=== PATIENT | female | born 1990 | race Caucasian/White ===

== ENCOUNTER 2016-10-21 11:04 | Emergency (ER) | payer OTHER | END 2016-10-21 12:06 | disposition home or self-care (01) | LOC: BURERS 11:04 | DX: S16.1XXA Strain of muscle, fascia and tendon at neck level, initial encounter (principal); B02.9 Zoster without complications; F17.210 Nicotine dependence, cigarettes, uncomplicated; F31.9 Bipolar disorder, unspecified; X58.XXXA Exposure to other specified factors, initial encounter | CPT/HCPCS: 99283 ==

== ENCOUNTER 2017-04-12 12:04 | Emergency (ER) | payer OTHER | END 2017-04-12 12:28 | disposition home or self-care (01) | LOC: BURERS 12:04 | DX: B86 Scabies (principal); B35.9 Dermatophytosis, unspecified; F31.9 Bipolar disorder, unspecified; F41.9 Anxiety disorder, unspecified; F17.210 Nicotine dependence, cigarettes, uncomplicated | CPT/HCPCS: 99282 ==

== ENCOUNTER 2017-05-23 15:20 | Emergency (ER) | payer OTHER ==
[2017-05-23] MEDS ORDERED: HYDROcodone/Acetaminophen 5/325 mg Tablet ONE (15:36)
[2017-05-23 15:57] LABS: Pregnancy Test - Urine (BHCG) Negative (Negative); Pregu Control Background? CLEAR/WHITE (CLR/WHITE); Pregu Control Bar Appear? YES (CONTROL BAR); Specific Gravity 1.026 (1.002-1.036)
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
== END 2017-05-23 16:25 | disposition home or self-care (01) ==
LOC: BURERS 15:20
DX: S33.5XXA Sprain of ligaments of lumbar spine, initial encounter (principal); I10 Essential (primary) hypertension; F17.210 Nicotine dependence, cigarettes, uncomplicated; V43.92XA Unspecified car occupant injured in collision with other type car in traffic accident, initial encounter
CPT/HCPCS: 72100; 81025

== ENCOUNTER 2017-11-28 08:05 | Emergency (ER) | payer OTHER ==
[2017-11-28] MEDS ORDERED: Benzonatate 100 MG CAP ONE (08:24)
[2017-11-28] MEDS ORDERED: Ondansetron ODT 4 MG TAB ONE (08:24)
[2017-11-28 09:41] LABS: #Basophils 0.1 thou/uL (0.0-0.2); #Lymphocytes 1.9 thou/uL (1.20-3.40); #Monocytes 0.4 thou/uL (0.11-0.59); #Neutrophils 7.6 thou/uL (1.40-6.50); %Basophils 0.8 % (0.0-1.0); %Eosinophils 0.3 % (0.0-10.0); %Lymphocytes 19.2 % (21.0-51.0); %Monocytes 3.8 % (0.0-10.0); %Neutrophils 75.9 % (42.0-75.0); Hemoglobin 15.4 g/dL (12.0-16.0); Mean Corpuscular HGB CONC 34.1 g/dL (32.0-36.0); Mean Corpuscular Hemoglobin 29.6 pg (27.0-31.0); Mean Corpuscular Volume 86.9 fl (81.0-99.0); Mean Platelet Volume 7.4 fL (7.4-10.4); Platelet Count 323 thou/uL (130-400); RBC Distribution Width 11.3 % (11.5-14.5); Red Blood Cell (RBC) Count 5.19 mill/uL (4.20-5.40)
[2017-11-28 09:57] LABS: ALT (SGPT) 36 U/L (8-55); AST (SGOT) 16 U/L (5-34); Alkaline Phosphatase 82 U/L (40-150); Anion Gap 16 mmol/L (10-20); BUN (Urea Nitrogen) 15 mg/dL (7.0-18.7); Bilirubin, Total 0.7 mg/dL (0.2-1.2); Calc. Creatinine Clearance 0 mL/min (70-130); Calcium 10.3 mg/dL (7.8-10.44); Carbon Dioxide 25 mmol/L (22-29); Chloride 108 mmol/L (98-107); Estimated GFR-MDRD 90; Globulin 3.4 g/dL (2.4-3.5); Glucose 103 mg/dL (70-105); Potassium 3.7 mmol/L (3.5-5.1); Protein, Total 8.4 g/dL (6.0-8.3); Sodium 145 mmol/L (136-145)
--- NOTE | 2017-11-28 20:46 | RAD ---
CHEST TWO VIEWS: 11/28/17 Comparison is made with the 03/22/16 study. The heart is normal in size and the lungs are clear. No infiltrate or effusion was seen to suggest p neumonia. The bony structures were unremarkable. IMPRESSION: No acute thoracic finding. POS: [facility]
== END 2017-11-28 10:06 | disposition home or self-care (01) ==
LOC: BURERS 08:05
DX: B34.9 Viral infection, unspecified (principal); I10 Essential (primary) hypertension; F41.9 Anxiety disorder, unspecified; F31.9 Bipolar disorder, unspecified; F17.210 Nicotine dependence, cigarettes, uncomplicated
CPT/HCPCS: 36415; 71046; 80053; 85025; Q0162

== ENCOUNTER 2018-04-10 12:02 | Emergency (ER) | payer OTHER | END 2018-04-10 12:24 | disposition home or self-care (01) | LOC: BURERS 12:02 | DX: M72.2 Plantar fascial fibromatosis (principal); I10 Essential (primary) hypertension; F41.9 Anxiety disorder, unspecified; F31.9 Bipolar disorder, unspecified; F17.210 Nicotine dependence, cigarettes, uncomplicated; Z79.899 Other long term (current) drug therapy | CPT/HCPCS: 99283 ==

== ENCOUNTER 2018-09-17 16:37 | Emergency (ER) | payer OTHER ==
--- NOTE | 2018-09-17 20:18 | RAD ---
RIGHT HAND THREE VIEWS: 09/17/2018 FINDINGS: No fracture is appreciated. All bones appear intact at the moment. The joints appear normal. The c arpal bones are unremarkable in appearance. IMPRESSION: No acute finding. POS: [facility]
== END 2018-09-17 17:42 | disposition home or self-care (01) ==
LOC: BURERS 16:37
DX: S60.221A Contusion of right hand, initial encounter (principal); F31.9 Bipolar disorder, unspecified; F41.9 Anxiety disorder, unspecified; F17.210 Nicotine dependence, cigarettes, uncomplicated; W22.01XA Walked into wall, initial encounter

== ENCOUNTER 2019-08-29 17:45 | Emergency (ER) | payer OTHER ==
[2019-08-29] MEDS ORDERED: Ketorolac Tromethamine 30 MG/ML VIAL ONE (18:03)
--- NOTE | 2019-08-29 18:22 | RAD ---
XR Knee Lt 4 View STANDARD HISTORY: Left knee pain FINDINGS: No fracture or dislocation is identified.
== END 2019-08-29 18:43 | disposition home or self-care (01) ==
LOC: BURERS 17:45
DX: M71.22 Synovial cyst of popliteal space [Baker], left knee (principal); F41.9 Anxiety disorder, unspecified; F31.9 Bipolar disorder, unspecified; F17.210 Nicotine dependence, cigarettes, uncomplicated
CPT/HCPCS: 96372; J1885

== ENCOUNTER 2019-09-07 19:58 | Emergency (ER) | payer OTHER ==
[2019-09-07 20:16] LABS: Bilirubin Small (Negative); Blood, Urine Negative (Negative); Clarity Slightly Cloudy (Clear); Glucose, Urine (Dipstick) Negative (Negative); Leukocyte Negative (Negative); Nitrite Negative (Negative); Protein, Urine (Dipstick) 30 mg/dL (Neg-Trace); Urobilinogen 0.2 mg/dL (Less than 2)
[2019-09-07 20:17] LABS: Pregnancy Test - Urine (BHCG) Negative (Negative); Pregu Control Background? CLEAR/WHITE (CLR/WHITE); Pregu Control Bar Appear? YES (CONTROL BAR); Specific Gravity 1.032 (1.002-1.036)
[2019-09-07] MEDS ORDERED: Ketorolac Tromethamine 30 MG/ML VIAL ONE (20:17)
[2019-09-07 20:19] LABS: Bacteria/HPF 2+ HPF (None Seen); RBC/HPF 0-3 HPF (0-3); Squamous Epithelial 0-3 HPF (0-3); WBC/HPF 0-3 HPF (0-3)
[2019-09-07 20:38] LABS: Anion Gap 15 mmol/L (10-20); BUN (Urea Nitrogen) 13 mg/dL (7.0-18.7); Calc. Creatinine Clearance 0 mL/min (70-130); Calcium 9.5 mg/dL (7.8-10.44); Carbon Dioxide 24 mmol/L (22-29); Chloride 103 mmol/L (98-107); Estimated GFR-MDRD 82; Glucose 89 mg/dL (70-105); Potassium 3.7 mmol/L (3.5-5.1); Sodium 138 mmol/L (136-145)
--- NOTE | 2019-09-07 21:32 | CT ---
CT ABDOMEN AND PELVIS PERFORMED WITHOUT CONTRAST ENHANCEMENT: 09/07/19 HISTORY: Right flank pain. History of previous kidney stones. COMPARISON: A 12/11/15 study. FINDINGS: The lung bases are clear of any focal infiltrative process. The liver measures 21 cm in length. Splee n is slightly prominent. Pancreas and gallbladder regions are unremarkable Right and left adrenal glands and right and left kidneys are normal in size. No renal calculi are edgar ntified. No ureteral calculi. There is no significant periaortic adenopathy. There are slightly promi nent mesenteric lymph nodes noted. CT OF PELVIS PERFORMED WITHOUT CONTRAST ENHANCEMENT: What appears to be some chain suture material related to previous appendectomy. The ovaries are promi nent, particularly on the right probably related to follicles. No evidence of any significant free fl uid. No adenopathy or mass. IMPRESSION: 1. No evidence of renal or ureteral calculi. 2. Borderline liver and spleen size. 3. Slightly prominent mesenteric lymph nodes. I cannot exclude an adenitis. 4. Somewhat enlarged appearing right ovary as compared to the left. There appear to be at least some follicles present. Patient is having right adnexal pain. Further evaluation with ultrasound woul d be suggested for better assessment of the overall appearance of the right ovary given its enlarged appearance. POS: [facility]
[2019-09-07 21:45] LABS: #Lymphocytes 1.1 thou/uL (1.20-3.40); #Monocytes 0.5 thou/uL (0.11-0.59); #Neutrophils 3.2 thou/uL (1.40-6.50); %Eosinophils 0.2 % (0.0-10.0); %Lymphocytes 22.6 % (21.0-51.0); %Monocytes 10.1 % (0.0-10.0); %Neutrophils 66.1 % (42.0-75.0); Hemoglobin 14.9 g/dL (12.0-16.0); Mean Corpuscular Hemoglobin 31.5 pg (27.0-31.0); Mean Corpuscular Volume 92.7 fL (78.0-98.0); Mean Platelet Volume 8.9 fL (7.4-10.4); Platelet Count 184 thou/uL (130-400); RBC Distribution Width 11.3 % (11.5-14.5); Red Blood Cell (RBC) Count 4.72 mill/uL (4.20-5.40); White Blood Cell (WBC) Count 4.8 thou/uL (4.8-10.8)
[2019-09-07 21:52] LABS: ALT (SGPT) 17 U/L (8-55); AST (SGOT) 13 U/L (5-34); Albumin 4.7 g/dL (3.5-5.0); Alkaline Phosphatase 62 U/L (40-110); Bilirubin, Direct 0.3 mg/dL (0.1-0.3); Bilirubin, Total 0.6 mg/dL (0.2-1.2); Protein, Total 7.7 g/dL (6.0-8.3)
== END 2019-09-07 21:48 | disposition short-term general hospital (02) ==
LOC: BURERS 19:58
DX: R10.31 Right lower quadrant pain (principal); F41.9 Anxiety disorder, unspecified; F31.9 Bipolar disorder, unspecified; F17.210 Nicotine dependence, cigarettes, uncomplicated
CPT/HCPCS: 74176; 80048; 80076; 81003; 81015; 81025; 85025; 96361; 96374; J1885

== ENCOUNTER 2020-02-28 13:14 | Emergency (ER) | payer OTHER | END 2020-02-28 13:51 | disposition home or self-care (01) | LOC: BURERS 13:14 | DX: K04.7 Periapical abscess without sinus (principal); K02.9 Dental caries, unspecified; F41.9 Anxiety disorder, unspecified; F31.9 Bipolar disorder, unspecified; F17.210 Nicotine dependence, cigarettes, uncomplicated | CPT/HCPCS: 99283 ==

== ENCOUNTER 2020-04-19 12:57 | Emergency (ER) | payer OTHER ==
[2020-04-19 13:48] LABS: Bilirubin Negative (Negative); Blood, Urine Negative (Negative); Clarity Clear (Clear); Glucose, Urine (Dipstick) Negative (Negative); Ketone, Urine Negative (Negative); Leukocyte Moderate (Negative); Nitrite Negative (Negative); Protein, Urine (Dipstick) Negative (Neg-Trace); Specific Gravity, Urine 1.015 (1.005-1.030); Urobilinogen 0.2 mg/dL (Less than 2)
[2020-04-19 13:52] LABS: Pregnancy Test - Urine (BHCG) Negative (Negative); Pregu Control Background? CLEAR/WHITE (CLR/WHITE); Pregu Control Bar Appear? YES (CONTROL BAR); Specific Gravity 1.015 (1.002-1.036)
[2020-04-19 13:55] LABS: Bacteria/HPF 1+ HPF (None Seen); RBC/HPF 0-3 HPF (0-3); Squamous Epithelial 0-3 HPF (0-3); WBC/HPF 0-3 HPF (0-3)
== END 2020-04-19 14:55 | disposition left against medical advice (07) ==
LOC: BURERS 13:00
DX: R10.31 Right lower quadrant pain (principal); F41.9 Anxiety disorder, unspecified; F31.9 Bipolar disorder, unspecified; F17.210 Nicotine dependence, cigarettes, uncomplicated
CPT/HCPCS: 81003; 81015; 81025; 99284

== ENCOUNTER 2020-11-15 23:50 | Emergency (ER) | payer OTHER | END 2020-11-16 00:30 | disposition home or self-care (01) | LOC: BURERS 23:50 | DX: O99.512 Diseases of the respiratory system complicating pregnancy, second trimester (principal); J06.9 Acute upper respiratory infection, unspecified; O99.332 Smoking (tobacco) complicating pregnancy, second trimester; F17.210 Nicotine dependence, cigarettes, uncomplicated; Z79.899 Other long term (current) drug therapy | CPT/HCPCS: 99283 ==

== ENCOUNTER 2021-05-27 18:46 | Emergency (ER) | payer OTHER ==
[2021-05-27] MEDS ORDERED: Ibuprofen 800 MG TAB ONE (19:57)
[2021-05-27] MEDS ORDERED: HYDROcodone/Acetaminophen 5/325 mg Tablet ONE (19:57)
== END 2021-05-27 20:07 | disposition home or self-care (01) ==
LOC: BURERS 18:46
DX: S43.52XA Sprain of left acromioclavicular joint, initial encounter (principal); F17.210 Nicotine dependence, cigarettes, uncomplicated; W01.0XXA Fall on same level from slipping, tripping and stumbling without subsequent striking against object, initial encounter

== ENCOUNTER 2022-11-27 13:15 | Emergency (ER) | payer OTHER ==
[2022-11-27] MEDS ORDERED: Ibuprofen 800 MG TAB ONE (13:51)
== END 2022-11-27 14:44 | disposition home or self-care (01) ==
LOC: BURERS 13:15
DX: S63.501D Unspecified sprain of right wrist, subsequent encounter (principal); F17.210 Nicotine dependence, cigarettes, uncomplicated; W01.0XXA Fall on same level from slipping, tripping and stumbling without subsequent striking against object, initial encounter

== ENCOUNTER 2025-04-15 09:16 | Emergency (ER) | payer OTHER, SELFPAY ==
[2025-04-15] MEDS ORDERED: Dexamethasone 4 MG TAB ONE (09:32)
== END 2025-04-15 09:42 | disposition home or self-care (01) ==
LOC: BURERS 09:16
DX: K08.89 Other specified disorders of teeth and supporting structures (principal); K02.9 Dental caries, unspecified; L03.211 Cellulitis of face; F17.210 Nicotine dependence, cigarettes, uncomplicated
CPT/HCPCS: 96372; 99282; J1885; J8540

== ENCOUNTER 2025-04-18 20:28 | Emergency (ER) | payer SELFPAY ==
[2025-04-18] MEDS ORDERED: Ondansetron PF 4 MG/2 ML Vial ONE (21:00)
[2025-04-18 21:10] LABS: Hematocrit 38.7 % (36.0-47.0); Hemoglobin 14.2 g/dL (12.0-16.0); Mean Corpuscular Hemoglobin 30.9 pg (27.0-31.0); Mean Corpuscular Volume 84.0 fl (78.0-98.0); Platelet Count 340 10x3/uL (130-400); Red Blood Cell (RBC) Count 4.60 mill/uL (4.20-5.40); White Blood Cell (WBC) Count 11.6 10x3/uL (4.8-10.8)
[2025-04-18 21:17] LABS: ALT (SGPT) 44 U/L (Less than 34); AST (SGOT) 25 U/L (11-34); Albumin 4.6 g/dL (3.1-4.5); Alkaline Phosphatase 76 U/L (40-110); Anion Gap 18 mmol/L (10-20); BUN (Urea Nitrogen) 10 mg/dL (7.0-18.7); Bilirubin, Total 0.6 mg/dL (0.3-1.2); Calc. Creatinine Clearance 0 mL/min (70-130); Calcium 9.5 mg/dL (7.8-10.44); Carbon Dioxide 25 mmol/L (22-29); Chloride 103 mmol/L (98-107); Globulin 3.1 g/dL (2.4-3.5); Glucose 93 mg/dL (70-105); MDiff Complete? YES; Platelet Adequacy Comment Appears Adequate; Potassium 4.1 mmol/L (3.5-5.1); Sodium 142 mmol/L (136-145)
== END 2025-04-18 23:28 | disposition short-term general hospital (02) ==
LOC: BURERS 20:28
DX: L03.211 Cellulitis of face (principal); F17.290 Nicotine dependence, other tobacco product, uncomplicated; F17.210 Nicotine dependence, cigarettes, uncomplicated
CPT/HCPCS: 36415; 70487; 80053; 83605; 85025; 87040; 96374; 96375; J2543